=== PATIENT | male | born 1995 | race Asian ===

== ENCOUNTER 2017-02-01 10:02 | Emergency (ER) | payer OTHER ==
[2017-02-01 10:09] VITALS: RESP 16
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
[2017-02-01] MEDS ORDERED: OXYCODONE/APAP 5/325 TAB PO ONE (11:56)
[2017-02-01 13:07] VITALS: BP 118/77; PULSE 64; TEMP 96.8; O2SAT 95
== END 2017-02-01 13:07 | disposition home or self-care (01) ==
DX: S89.92XA Unspecified injury of left lower leg, initial encounter (principal); V19.88XA Pedal cyclist (driver) (passenger) injured in other specified transport accidents, initial encounter; Y92.410 Unspecified street and highway as the place of occurrence of the external cause; Y99.8 Other external cause status; Y93.55 Activity, bike riding